=== PATIENT | male | born 1995 | race Two or more races ===

== ENCOUNTER 2017-08-28 18:05 | Emergency (ER) | payer OTHER ==
[2017-08-28 18:36] VITALS: BP 122/69; TEMP 98.8; BMI 25.1
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
== END 2017-08-28 19:16 | disposition home or self-care (01) ==
LOC: JERFT 18:05
DX: S13.4XXA Sprain of ligaments of cervical spine, initial encounter (principal); V49.59XA Passenger injured in collision with other motor vehicles in traffic accident, initial encounter; Y92.488 Other paved roadways as the place of occurrence of the external cause; Y93.89 Activity, other specified; Y99.8 Other external cause status
CPT/HCPCS: 99281-25